=== PATIENT | female | born 1980 | race Caucasian/White ===

== ENCOUNTER 2016-12-09 16:23 | Inpatient (IN) ==
[2016-12-09 16:45] LABS: Basophils # 0.1 K/mcL (0.0-0.2); Basophils % 0.7 %; Eosinophils # 0.2 K/mcL (0.0-0.6); Eosinophils % 2.3 %; Hemoglobin 14.3 g/dL (11.5-15.4); Immature Granulocytes % 0.1 % (0-4); Immature Platelets 6.2 % (1.1-6.1); Lymphocytes # 2.5 K/mcL (0.6-4.6); Lymphocytes % 34.7 %; Mean Corpuscular HGB Conc 33.3 g/dL (31.6-35.5); Mean Corpuscular Hemoglobin 31.1 pg (28.0-33.3); Mean Corpuscular Volume 93.5 fL (83.0-100.0); Mean Platelet Volume 10.3 fL (9.4-12.4); Monocytes # 0.7 K/mcL (0.0-1.3); Monocytes % 9.8 %; Neutrophils # 3.7 K/mcL (1.6-8.9); Platelet Count 169 K/mcL (140-400); Red Cell Distribution Width 12.9 % (11.5-14.5); Segmented Neutrophils % 52.4 %
[2016-12-09 16:57] LABS: BUN/Creatinine Ratio 8 (6-26); Blood Urea Nitrogen 6 mg/dL (7-20); Calcium 9.3 mg/dL (8.6-10.8); Carbon Dioxide 24 mEq/L (19-29); Chloride 110 mEq/L (98-109); Glucose 103 mg/dL (70-99); Osmolality,Calculated 288 (280-300); Sodium 140 mEq/L (136-145); eGFR For African Americans > 60 (> 60); eGFR For Non-African Americans > 60 (> 60)
[2016-12-09 16:58] LABS: Acetaminophen < 1.0 mcg/mL (10-30); Ethanol < 10 mg/dL (0-10); Salicylate < 5.0 mg/dL (15-30)
--- NOTE | 2016-12-09 17:09 | Emergency Department Note ---
Disposition Clinical Impression: Suicidal ideation Disposition: Admitted As Inpatient Referrals: NONE,PCP [Primary Care Provider] - Forms: ED Satisfaction Letter Psych HPI - General Chief Complaint: ED Psychiatric Symptoms Stated Complaint: "having a mental breakdown" Time Seen by Provider: 12/09/16 17:07 Source: patient Mode of arrival: ambulatory Limitations: no limitations Nursing Notes Reviewed: Yes Vital Signs Reviewed: Yes - History of Present Illness Pt complaint: feels depressed Onset (ago): week(s) (1) Duration: changing over time, getting worse History of similar episodes: Yes Improves with: none Worsens with: none Alleged intoxication: No Associated Psychiatric Symptoms: depression, suicidal ideation Associated symptoms: Reports: denies other symptoms Traumatic symptoms: denies traumatic injury Treatments prior to arrival: none - Related Data Allergies Allergy/AdvReac Type Severity Reaction Status Date / Time Sulfa (Sulfonamide Allergy Hives Verified 12/09/16 16:27 Antibiotics) All systems ED: reviewed and negative except as stated. Constitutional: Denies: fever, chills, weakness Respiratory: Denies: cough Past Medical History - Past Medical History Source: patient, obtained from family, nursing notes reviewed Medical history: Reports: no medical history - Social History Smoking Status: Current every day smoker Smokeless Tobacco Status: No Alcohol use: Reports: none Drug use: Reports: none Physical Exam - General Limitations: no limitations General appearance: alert, in no apparent distress - Head Head exam: atraumatic, normocephalic, normal inspection - Eye Eye exam: Present: normal appearance, PERRL, EOMI - Expanded Eye Exam Pupils: Left: reactive - ENT ENT exam: normal exam, normal oropharynx, mucous membranes moist - Expanded ENT Exam External ear exam: Present: normal external inspection Mouth exam: Present: normal external inspection Teeth exam: Present: normal inspection Throat exam: Present: normal inspection - Neck Neck exam: Present: normal inspection, full ROM, trachea midline - Chest Chest inspection: Present: normal inspection, symmetric chest wall rise - Respiratory Respiratory exam: Present: normal lung sounds bilaterally - Cardiovascular Cardiovascular exam: Present: regular rate, normal rhythm, normal heart sounds - Abdominal Exam Abdominal exam: Present: soft, Non-Tender. Absent: tenderness, distention, guarding, rebound, rigidity - Extremities Exam Extremities exam: Present: normal inspection, full ROM. Absent: tenderness, pedal edema - Expanded Upper Extremity Exam Shoulder exam: Present: normal inspection, full ROM Arm exam: Present: normal inspection, full ROM Elbow exam: Present: normal inspection, full ROM Forearm/Wrist exam: Present: normal inspection, full ROM Hand exam: Present: normal inspection, full ROM Vascular exam: Normal: capillary refill, radial pulse - Expanded Lower Extremity Exam Hip/Pelvis exam: Present: normal inspection, full ROM Upper leg exam: Present: normal inspection, full ROM Knee exam: Present: normal inspection, full ROM Lower leg exam: Present: normal inspection, full ROM Ankle exam: Present: normal inspection, full ROM Foot/toe exam: Present: normal inspection, full ROM Neurovascular/Tendon exam: Absent: motor deficit, sensory deficit, tendon deficit - Back Exam Back exam: Present: normal inspection, full ROM. Absent: tenderness - Neurological Exam Neurological exam: Present: alert, oriented X3 - Expanded Neurological Exam Patient oriented to: Present: person, place, time Coma Scale Eye Opening: Spontaneous Coma Scale Motor Response: Obeys Commands Coma Scale Verbal Response: Oriented Coma Scale Total: 15 - Psychiatric Psychiatric exam: Present: normal affect, depressed - Skin Skin exam: Present: warm, dry, intact, normal color Course Vital Signs Temperature 97.6 F 12/09/16 16:25 Pulse Rate 93 12/09/16 16:25 Respiratory Rate 16 12/09/16 16:25 Blood Pressure 148/83 12/09/16 16:25 O2 Sat by Pulse Oximetry 100 12/09/16 16:25 Temperature 97.6 F 12/09/16 16:25 Pulse Rate 93 12/09/16 16:25 Respiratory Rate 16 12/09/16 16:25 Blood Pressure 148/83 12/09/16 16:25 O2 Sat by Pulse Oximetry 100 12/09/16 16:25 Oxygen Delivery Oxygen Delivery Room Air Psych - Lab Data Result diagrams: 12/09/16 16:38 12/09/16 16:38 Lab Results 12/09/16 12/09/16 12/09/16 Range/Units 16:29 16:29 16:38 WBC 7.1 (4.3-11.1) K/mcL RBC 4.60 (3.82-4.97) M/mcL Hgb 14.3 (11.5-15.4) g/dL Hct 43.0 (35.3-44.9) % MCV 93.5 (83.0-100.0) fL MCH 31.1 (28.0-33.3) pg MCHC 33.3 (31.6-35.5) g/dL RDW 12.9 (11.5-14.5) % Plt Count 169 (140-400) K/mcL MPV 10.3 (9.4-12.4) fL Immature Gran % 0.1 (0-4) % Seg Neutrophils % 52.4 % Lymphocytes % 34.7 % Monocytes % 9.8 % Eosinophils % 2.3 % Basophils % 0.7 % Neutrophils # 3.7 (1.6-8.9) K/mcL Lymphocytes # 2.5 (0.6-4.6) K/mcL Monocytes # 0.7 (0.0-1.3) K/mcL Eosinophils # 0.2 (0.0-0.6) K/mcL Basophils # 0.1 (0.0-0.2) K/mcL Immature Plt Fraction 6.2 H (1.1-6.1) % Sodium (136-145) mEq/L Potassium (3.5-4.5) mEq/L Chloride (98-109) mEq/L Carbon Dioxide (19-29) mEq/L BUN (7-20) mg/dL Creatinine (0.57-1.11) mg/dL Est GFR ( Amer) (> 60) Est GFR (Non-Af Amer) (> 60) BUN/Creatinine Ratio (6-26) Glucose (70-99) mg/dL Calculated Osmolality (280-300) Calcium (8.6-10.8) mg/dL Urine Color Yellow (Yellow) Urine Clarity Cloudy A (Clear) Urine pH 6.5 (5.0-8.0) pH Units Ur Specific [place] 1.013 (1.010-1.025) Urine Protein Negative (Neg-Trace) mg/dL Urine Glucose (UA) Normal (Normal) mg/dL Urine Ketones Negative (Negative) mg/dL Urine Blood Negative (Negative) Urine Nitrite Negative (Negative) Urine Bilirubin Negative (Negative) Urine Urobilinogen Normal (Normal) mg/dL Ur Leukocyte Esterase Small H (Negative) Urine Microscopic RBC 0-3 (0-3) per hpf Urine Microscopic WBC 3-5 H (0-3) per hpf Ur Squamous Epith Cells Moderate H (None-Few) per lpf Urine Bacteria Few (None-Few) per hpf Salicylates (15-30) mg/dL Urine Opiates Screen Negative (Oxdmao=975) ng/mL Acetaminophen (10-30) mcg/mL Ur Barbiturates Screen Negative (Metxfl=045) ng/mL Ur Phencyclidine Scrn Negative (Cutoff=25) ng/mL Ur Amphetamines Screen Negative (Knysji=3090) ng/mL U Benzodiazepines Scrn Negative (Cexcyg=660) ng/mL Urine Cocaine Screen Negative (Cutoff= 300) ng/mL U Marijuana (THC) Screen Negative (Cutoff = 50) ng/mL Ethyl Alcohol (0-10) mg/dL 12/09/16 Range/Units 16:38 WBC (4.3-11.1) K/mcL RBC (3.82-4.97) M/mcL Hgb (11.5-15.4) g/dL Hct (35.3-44.9) % MCV (83.0-100.0) fL MCH (28.0-33.3) pg MCHC (31.6-35.5) g/dL RDW (11.5-14.5) % Plt Count (140-400) K/mcL MPV (9.4-12.4) fL Immature Gran % (0-4) % Seg Neutrophils % % Lymphocytes % % Monocytes % % Eosinophils % % Basophils % % Neutrophils # (1.6-8.9) K/mcL Lymphocytes # (0.6-4.6) K/mcL Monocytes # (0.0-1.3) K/mcL Eosinophils # (0.0-0.6) K/mcL Basophils # (0.0-0.2) K/mcL Immature Plt Fraction (1.1-6.1) % Sodium 140 (136-145) mEq/L Potassium 4.0 (3.5-4.5) mEq/L Chloride 110 H (98-109) mEq/L Carbon Dioxide 24 (19-29) mEq/L BUN 6 L (7-20) mg/dL Creatinine 0.72 (0.57-1.11) mg/dL Est GFR ( Amer) > 60 (> 60) Est GFR (Non-Af Amer) > 60 (> 60) BUN/Creatinine Ratio 8 (6-26) Glucose 103 H (70-99) mg/dL Calculated Osmolality 288 (280-300) Calcium 9.3 (8.6-10.8) mg/dL Urine Color (Yellow) Urine Clarity (Clear) Urine pH (5.0-8.0) pH Units Ur Specific [place] (1.010-1.025) Urine Protein (Neg-Trace) mg/dL Urine Glucose (UA) (Normal) mg/dL Urine Ketones (Negative) mg/dL Urine Blood (Negative) Urine Nitrite (Negative) Urine Bilirubin (Negative) Urine Urobilinogen (Normal) mg/dL Ur Leukocyte Esterase (Negative) Urine Microscopic RBC (0-3) per hpf Urine Microscopic WBC (0-3) per hpf Ur Squamous Epith Cells (None-Few) per lpf Urine Bacteria (None-Few) per hpf Salicylates < 5.0 L (15-30) mg/dL Urine Opiates Screen (Vfjxre=598) ng/mL Acetaminophen < 1.0 L (10-30) mcg/mL Ur Barbiturates Screen (Psrcty=659) ng/mL Ur Phencyclidine Scrn (Cutoff=25) ng/mL Ur Amphetamines Screen (Xvquod=6801) ng/mL U Benzodiazepines Scrn (Owmznr=640) ng/mL Urine Cocaine Screen (Cutoff= 300) ng/mL U Marijuana (THC) Screen (Cutoff = 50) ng/mL Ethyl Alcohol < 10 (0-10) mg/dL Psychiatric Medical Clearance - Medical Clearance Checklist Medical History: No Social History Section defined Current Vitals: Last Vital Signs Temp 97.6 F 12/09/16 16:25 Pulse 93 12/09/16 16:25 Resp 16 12/09/16 16:25 BP 148/83 12/09/16 16:25 Pulse Ox 100 12/09/16 16:25 Psychiatric Lab Panel: Drug Levels and Toxicity 12/09/16 12/09/16 16:29 16:38 Urine Opiates Screen Negative Acetaminophen < 1.0 L Ur Barbiturates Screen Negative Ur Phencyclidine Scrn Negative Ur Amphetamines Screen Negative U Benzodiazepines Scrn Negative Urine Cocaine Screen Negative U Marijuana (THC) Screen Negative Ethyl Alcohol < 10 Abnormal Labs: Abnormal lab results Immature Plt Fraction 6.2 % (1.1-6.1) H 12/09/16 16:38 Chloride 110 mEq/L (98-109) H 08/26/17 16:38 BUN 6 mg/dL (7-20) L 12/09/16 16:38 Glucose 103 mg/dL (70-99) H 12/09/16 16:38 Urine Clarity Cloudy (Clear) A 12/09/16 16:29 Ur Leukocyte Esterase Small (Negative) H 12/09/16 16:29 Urine Microscopic WBC 3-5 per hpf (0-3) H 12/09/16 16:29 Ur Squamous Epith Cells Moderate per lpf (None-Few) H 12/09/16 16:29 Salicylates < 5.0 mg/dL (15-30) L 12/09/16 16:38 Acetaminophen < 1.0 mcg/mL (10-30) L 12/09/16 16:38 Statement of Medical Clearance: I have evaluated the patient, reviewed diagnostic information, and certify that the patient's medical condition is sufficiently stable that transfer to the psychiatric unit does not pose a significant risk of deterioration.
[2016-12-09 17:21] LABS: Bilirubin,Urine Negative (Negative); Blood,Urine Negative (Negative); Clarity,Urine Cloudy (Clear); Color,Urine Yellow (Yellow); Glucose,Urine (UA) Normal (Normal); Ketones,Urine Negative (Negative); Leukocyte Esterase,Urine Small (Negative); Nitrite,Urine Negative (Negative); PH,Urine 6.5 pH Units (5.0-8.0); Protein,Urine Negative (Neg-Trace); Specific Gravity,Urine 1.013 (1.010-1.025); Urobilinogen,Urine Normal (Normal)
[2016-12-09 17:26] LABS: Amphetamine Screen,Urine Negative ng/mL (Cutoff=1000); Barbiturate Screen,Urine Negative ng/mL (Cutoff=200); Benzodiazepines Screen,Urine Negative ng/mL (Cutoff=200); Cannabinoid Screen,Urine Negative ng/mL (Cutoff = 50); Cocaine Screen,Urine Negative ng/mL (Cutoff= 300); Opiate Screen,Urine Negative ng/mL (Cutoff=300); Phencyclidine Screen,Urine Negative ng/mL (Cutoff=25)
[2016-12-09 17:34] LABS: Bacteria,Urine Few per hpf (None-Few); RBC,Urine 0-3 per hpf (0-3); Squamous Epithelial Cell,Urine Moderate per lpf (None-Few)
[2016-12-09] MEDS ORDERED: *HR* LORazepam 2 MG/ML VIAL IM PRN (21:53)
[2016-12-09] MEDS ORDERED: MOM Conc 10 ML UD.LIQ PO PRN (21:53)
[2016-12-09] MEDS ORDERED: Mag Hydrox/Al Hydrox/Simeth 30 ML UDC PO PRN (21:53)
[2016-12-09] MEDS ORDERED: *HR* LORazepam 1 MG TABLET PO PRN (21:53)
[2016-12-09] MEDS ORDERED: hydrOXYzine pamoate 25 MG CAPSULE PO PRN (21:53)
[2016-12-09] MEDS ORDERED: Ibuprofen 400 MG TABLET PO PRN (21:53)
[2016-12-09] MEDS ORDERED: Haloperidol Lactate 5 MG/ML VIAL IM PRN (21:53)
[2016-12-09] MEDS ORDERED: Venlafaxine XR (24 HR) 75 MG CAP.ER.24H PO SCH (22:15)
[2016-12-09] MEDS: Nicotine 21 MG PATCH.TD24 TD SCH (22:32)
[2016-12-09] MEDS: traZODone 50 MG TABLET PO PRN (23:37)
[2016-12-10] MEDS: Nicotine 21 MG PATCH.TD24 TD SCH (08:14)
[2016-12-10] MEDS ORDERED: VENLAFAXINE PO SCH ×2 (09:00→22:00)
[2016-12-10] MEDS ORDERED: Venlafaxine XR (24 HR) 37.5 MG CAP.ER.24H PO SCH (09:00)
--- NOTE | 2016-12-10 17:08 | Psychiatry History & Physical ---
Date of Encounter: 12/10/16 Time of Encounter: 17:05 History of Present Illness Patient Stated Chief Complaint: "im not doing good" Medicare Admission Attestation: For traditional Medicare patients the provided hospital inpatient services are reasonable and necessary and in the case of services not specified as inpatient -only under 42 CFR 419.22 (n), that they are appropriately provided as inpatient services in accordance 42 CFR 412.3. For Critical Access Hospital the patient may reasonably be expected to be discharged or transferred to a hospital within 96 hours after admission to the Critical Access Hospital. Admitted From: Home Plans for Post Hospital Care: Home History of Present Illness: Ms. Marixa Serna is a 36 year old female admitted from home she reports having alot of anxiety and stress about work and reprots that she couldnt handle it anymore. she reports no energy and reprts that she has beenemotionally labile. she reports she doesnt socilize with anyone and reports that she keeps to herself. Reports she feels er anxiety is really bad when she is going to work and reports she almost has panic attack. she reports this doesnt happen when she is with her family or hanging with her friends. reports when at home doesnt feel like doing anything. 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 appetite- fair substance use hx- denies medical hx- denies social - lives with family 4 children Past Med Surg Social Fam HX - Past Medical History Medical history: no medical history - Past Psychiatric History Psychiatric history: Reports: anxiety Past psychiatric history details: inpatient hospitalizations: denies sa: denies current meds: effexor was recently increased in september 2016 past meds: denies Family psychiatric history: Yes Family History of Suicide: None - Past Surgical History Surgical History: appendectomy, cholecystectomy, orthopedic, other - Social History Smoking Status: Current every day smoker Smokeless Tobacco Status: No Alcohol use: none Drug use: none Medications & Allergies Venlafaxine HCl [Effexor Xr] 75 mg PO BID 12/09/16 [History] Venlafaxine XR (24 HR) [Effexor XR] 37.5 mg PO DAILY 12/09/16 [History] 3 Allergy/AdvReac Type Severity Reaction Status Date / Time Sulfa (Sulfonamide Allergy Hives Verified 12/09/16 16:27 Antibiotics) Review of Systems Psychiatric: Reports: depression, anxiety Mental Status Exam Patient orientation: Yes Person, Yes Time, Yes Place, Yes Circumstance Level of alertness: Alert Patient appearance: Appropriate Behavior: calm, cooperative Psychomotor activity: Normal Eye contact: Maintains Eye Contact Mood description: Depressed, Anxious Affect description: congruent with mood Speech pattern: Normal rate Speech volume: Normal Thought process: Intact Thought content: Yes Intact Attention span: Capable of Focused Attention, Capable of Sustained Attention Exam - HEENT Head exam IM: Present: normal inspection - Neurological Neurological exam IM: Present: alert, oriented X3 Results - Vital Signs Vital signs: Temp Pulse Resp BP Pulse Ox 98.0 F 73 16 108/67 100 12/10/16 08:25 12/10/16 08:25 12/10/16 08:25 12/10/16 08:25 12/09/16 16:25 - Labs Labs: Laboratory Last Values WBC 7.1 K/mcL (4.3-11.1) 12/09/16 16:38 RBC 4.60 M/mcL (3.82-4.97) 12/09/16 16:38 Hgb 14.3 g/dL (11.5-15.4) 12/09/16 16:38 Hct 43.0 % (35.3-44.9) 12/09/16 16:38 MCV 93.5 fL (83.0-100.0) 12/09/16 16:38 MCH 31.1 pg (28.0-33.3) 12/09/16 16:38 MCHC 33.3 g/dL (31.6-35.5) 12/09/16 16:38 RDW 12.9 % (11.5-14.5) 12/09/16 16:38 Plt Count 169 K/mcL (140-400) 12/09/16 16:38 MPV 10.3 fL (9.4-12.4) 12/09/16 16:38 Immature Gran % 0.1 % (0-4) 12/09/16 16:38 Seg Neutrophils % 52.4 % 12/09/16 16:38 Lymphocytes % 34.7 % 12/09/16 16:38 Monocytes % 9.8 % 12/09/16 16:38 Eosinophils % 2.3 % 12/09/16 16:38 Basophils % 0.7 % 12/09/16 16:38 Neutrophils # 3.7 K/mcL (1.6-8.9) 12/09/16 16:38 Lymphocytes # 2.5 K/mcL (0.6-4.6) 12/09/16 16:38 Monocytes # 0.7 K/mcL (0.0-1.3) 12/09/16 16:38 Eosinophils # 0.2 K/mcL (0.0-0.6) 12/09/16 16:38 Basophils # 0.1 K/mcL (0.0-0.2) 12/09/16 16:38 Immature Plt Fraction 6.2 % (1.1-6.1) H 12/09/16 16:38 Sodium 140 mEq/L (136-145) 12/09/16 16:38 Potassium 4.0 mEq/L (3.5-4.5) 12/09/16 16:38 Chloride 110 mEq/L (98-109) H 12/09/16 16:38 Carbon Dioxide 24 mEq/L (19-29) 12/09/16 16:38 BUN 6 mg/dL (7-20) L 12/09/16 16:38 Creatinine 0.72 mg/dL (0.57-1.11) 12/09/16 16:38 Est GFR ( Amer) > 60 (> 60) 12/09/16 16:38 Est GFR (Non-Af Amer) > 60 (> 60) 12/09/16 16:38 BUN/Creatinine Ratio 8 (6-26) 12/09/16 16:38 Glucose 103 mg/dL (70-99) H 12/09/16 16:38 Calculated Osmolality 288 (280-300) 12/09/16 16:38 Calcium 9.3 mg/dL (8.6-10.8) 12/09/16 16:38 Urine Color Yellow (Yellow) 12/09/16 16:29 Urine Clarity Cloudy (Clear) A 12/09/16 16:29 Urine pH 6.5 pH Units (5.0-8.0) 12/09/16 16:29 Ur Specific [place] 1.013 (1.010-1.025) 12/09/16 16:29 Urine Protein Negative mg/dL (Neg-Trace) 12/09/16 16:29 Urine Glucose (UA) Normal mg/dL (Normal) 12/09/16 16:29 Urine Ketones Negative mg/dL (Negative) 12/09/16 16:29 Urine Blood Negative (Negative) 12/09/16 16:29 Urine Nitrite Negative (Negative) 12/09/16 16:29 Urine Bilirubin Negative (Negative) 12/09/16 16:29 Urine Urobilinogen Normal mg/dL (Normal) 12/09/16 16:29 Ur Leukocyte Esterase Small (Negative) H 12/09/16 16:29 Urine Microscopic RBC 0-3 per hpf (0-3) 12/09/16 16:29 Urine Microscopic WBC 3-5 per hpf (0-3) H 12/09/16 16:29 Ur Squamous Epith Cells Moderate per lpf (None-Few) H 12/09/16 16:29 Urine Bacteria Few per hpf (None-Few) 12/09/16 16:29 Salicylates < 5.0 mg/dL (15-30) L 12/09/16 16:38 Urine Opiates Screen Negative ng/mL (Nloglv=365) 12/09/16 16:29 Acetaminophen < 1.0 mcg/mL (10-30) L 12/09/16 16:38 Ur Barbiturates Screen Negative ng/mL (Qbvimv=693) 12/09/16 16:29 Ur Phencyclidine Scrn Negative ng/mL (Cutoff=25) 12/09/16 16:29 Ur Amphetamines Screen Negative ng/mL (Dmuqbn=1077) 12/09/16 16:29 U Benzodiazepines Scrn Negative ng/mL (Kflsja=307) 12/09/16 16:29 Urine Cocaine Screen Negative ng/mL (Cutoff= 300) 12/09/16 16:29 U Marijuana (THC) Screen Negative ng/mL (Cutoff = 50) 12/09/16 16:29 Ethyl Alcohol < 10 mg/dL (0-10) 12/09/16 16:38 Assessment and Plan (1) Anxiety and depression Current visit: Yes Status: Acute Plan: Admit inpatient for safety and stabilization, Encourage participation in unit milieu, Group Therapy, Monitor sleep, Monitor appetite Additional Plan: 12/10 increase effexor start ativan 0.5 take q/2 tab bid schedule trazodone Risks, benefits, side effects, alternatives discussed w/pt: Yes Patient agreeable to treatment: Yes Plans for Post Hospital Care: Home Estimated Length of Stay (Days): 3
[2016-12-10] MEDS ORDERED: *HR* LORazepam 0.5 MG TABLET PO PRN (18:33)
[2016-12-10] MEDS ORDERED: Venlafaxine XR (24 HR) 150 MG CAP.ER.24H PO SCH (21:00)
[2016-12-10] MEDS: traZODone 50 MG TABLET PO PRN (21:01)
[2016-12-11] MEDS ORDERED: Venlafaxine XR (24 HR) 150 MG CAP.ER.24H PO SCH ×2 (09:00→18:00)
[2016-12-11] MEDS: Nicotine 21 MG PATCH.TD24 TD SCH (09:36)
[2016-12-11 09:53] VITALS: BP 113/78
--- NOTE | 2016-12-11 13:47 | Discharge Summary ---
Date of Encounter: 12/11/16 Time of Encounter: 13:42 Diagnosis - Discharge Diagnosis (1) Anxiety and depression Status: Acute Medications - Discharge Medications Prescriptions: LORazepam [Ativan] 0.25 mg PO BID PRN #30 tab PRN Reason: Anxiety Nicotine Patch [Nicoderm] 21 mg TD DAILY #30 patch traZODone [TraZODone] 50 mg PO HS PRN #30 tab PRN Reason: Insomnia Venlafaxine HCl [Effexor Xr] 75 mg PO BID #60 Venlafaxine XR (24 HR) [Effexor Xr] 150 mg PO DAILY #30 LORazepam [Ativan] 0.25 mg PO BID PRN #30 tab 12/11/16 [Rx] Nicotine Patch [Nicoderm] 21 mg TD DAILY #30 patch 12/11/16 [Rx] Venlafaxine HCl [Effexor Xr] 75 mg PO BID #60 12/11/16 [Rx] Venlafaxine XR (24 HR) [Effexor Xr] 150 mg PO DAILY #30 12/11/16 [Rx] traZODone [TraZODone] 50 mg PO HS PRN #30 tab 12/11/16 [Rx] 3 Allergy/AdvReac Type Severity Reaction Status Date / Time Sulfa (Sulfonamide Allergy Hives Verified 12/09/16 16:27 Antibiotics) Provider Date of admission: 12/09/16 19:41 Primary care physician: PCP NONE Discharging clinician: Jodi Bautista Assessment and Plan - Patient/Caregiver Discharge Instructions Activity: resume usual activities as tolerated Diet: regular diet - Follow up Plan [facility] [Other] (The office is only open on Fridays, from 9 AM - 4 PM. You will receive a call this 12/15/2016, when staff return to the office, to get your first appointment scheduled. ) Elizabet Carlson, [facility] [Advanced Practice Nurse] - (You will see Elizabet for primary health and medication management services within one week of discharge for follow-up. The office does not schedule appointments, therefore you may walk in Sunday through Sunday from 1:30 PM to 7:00 PM, or Sunday from 9:00 AM through 4:00 PM.) Disposition: Home, Self-Care Hospital Course Hospital course: Ms. Marixa Serna is a 36 year old female with a past psychiatric history of anxiety and depression was admitted to inpatient psychiatric unit for safety and stabilization. Patient's home medications were reviewed and continued. Patient came in to Hospital due to having increased anxiety and depression related to her work. Patient's home medications were continued and reviewed. Throughout the hospital course patient's Effexor was increased for depression and anxiety and patient was started on Ativan 0.25 twice a day as needed where she can take an hour before work as well as during her lifetime since her anxiety is secondary to being at work. Patient did not exhibit any side effects to medication he was med compliant while he was on the unit patient participated in groups and was socializing with peers. Patient's sleep and appetite was fair. Patient denied any suicide or homicide ideations. Patient denied any thoughts of self- harm. Patient reports being interested in outpatient medication management and counseling. Patient was discussed for discharge due to patient not being a threat to himself or anyone else. 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 Patient will be returning home on discharge. Time spent discussing smoking cessation with patient: 3 to 10 minutes Does patient wish to continue nicotine replacement upon disc: No - Time Spent with Patient Total time spent providing and/or coordinating discharge services: Less than 30 minutes Quality - Multiple Antipsychotics Patient discharged on 2 or more antipsychotic medications: No Procedures - Procedures Procedures: Medication Management, Supportive Therapy, Group Therapy, Psychoeducational Therapy Mental Status Exam - Mental Status Exam Patient orientation: Yes Person, Yes Time, Yes Place, Yes Circumstance Level of alertness: Alert Patient appearance: Appropriate Behavior: calm Psychomotor activity: Normal Eye contact: Maintains Eye Contact Mood description: Euthymic/stable Affect description: congruent with mood Speech pattern: Normal rate Speech Volume: Normal Thought process: Intact Thought Content: Yes Intact Judgment: Fair Insight: Full
== END 2016-12-11 15:45 | disposition home or self-care (01) | DRG 880 ==
LOC: EMEROO 16:23 → 1ANU 19:41
PROVIDERS: ADMIT Psychiatry & Neurology Psychiatry; ATTEND Psychiatry & Neurology Psychiatry